=== PATIENT | female | born 1970 | race Caucasian/White ===

== ENCOUNTER 2022-07-30 02:03 | Outpatient (CLI) | payer BC, SELFPAY ==
--- NOTE | 2022-07-30 13:25 | DI.MAMMO_ITS ---
Exam(s) MG MAMMO DIAGNOSTIC UNI US BREAST RT LIMITED EXAM: MG MAMMO DIAGNOSTIC UNI CLINICAL HISTORY: RT BREAST LUMP OR MASS, N63.0 TECHNIQUE: Mammograms were interpreted according to the usual protocol including computer analysis w ith CAD system, tomosynthesis and C-view imaging. COMPARISON: FINDINGS: Right breast mammogram and right breast ultrasound are interpreted in conjunction. Patient reportedl y has palpable right breast abnormality. No prior examinations were available for comparison. In the upper outer quadrant of the right breast, there is an approximately 4 cm in diameter well-circ umscribed mass as well as a 2 cm in diameter well-circumscribed mass. Breast ultrasound showed these to both be simple cysts. Multiple additional cysts were noted in the right breast. No solid mass i dentified. Mammographically no other mass or clumped microcalcification seen. IMPRESSION: Palpable right breast mass corresponds to simple cyst confirmed on ultrasound. Multiple additional c ysts also seen. No suspicious mass identified. Routine screening mammography recommended. BI-RADS Category 2 - Benign Findings Breast Density - Category B - Scattered areas of fibroglandular density
== END 2022-07-30 02:23 ==
LOC: DI 02:03
PROVIDERS: Visit Provider Nurse Practitioner Family
DX: N60.01 Solitary cyst of right breast (principal)
CPT/HCPCS: 76642; 77061; 77065; G0279

== ENCOUNTER 2022-11-12 11:55 | Outpatient (REF) | payer BC, SELFPAY ==
--- NOTE | 2022-11-12 10:35 | PAPFT_PTH ---
PATIENT: Adry Rome LOC: [facility] U#:[id number] AGE/SX: 52/F ROOM: RE11/12/[address]: FELECIA BENTLEY : 1970 BED: DIS: 11/12/2022 SPEC #: [id number] RECD: 11/12/22 18:03 STATUS: REEMA REQ #: [id number] PEACE: 11/12/22 10:[address]: Felecia Bentley DEPT: [facility] Cytology RECD BY: Mehreen Shook Tissues: 1 - CX/ENDOCX FOR PAP SMEARS Procedures: PAP THIN PREP/UVM Screening HPV DNA PROBE Comments: [id number]
[2022-11-12 15:54] LABS: ALT 33 U/L (14-59); AST 27 U/L (15-37); Albumin 3.9 g/dL (3.4-5.0); Alkaline Phosphatase 80 U/L (46-116); Anion Gap 6.4 mmol/L (3-11); BUN 20 mg/dL (7-18); Bilirubin, Total 0.6 mg/dL (0.2-1.0); CO2 29.6 mmol/L (21.0-32.0); CREATININE 0.8 mg/dL (0.55-1.02); Calcium 9.5 mg/dL (8.5-10.1); Calculated LDL 360 mg/dL (<100); Chloride 103 mmol/L (98-107); Cholesterol 438 mg/dL (<200); Estimated GFR 89.15 (mL/min/1.73m2); Glucose 93 mg/dL (74-106); HDL Cholesterol 47 mg/dL (40-60); Potassium 4.6 mmol/L (3.5-5.1); Sodium 139 mmol/L (136-145); Total Protein 7.8 g/dL (6.4-8.2); Triglyceride 157 mg/dL (<150)
[2022-11-12 16:21] LABS: Hemoglobin A1C 5.6 % (<5.7)
== END 2022-11-12 11:56 | disposition home or self-care (01) ==
LOC: NCHCN 11:55
PROVIDERS: Visit Provider Nurse Practitioner Family
DX: R63.5 Abnormal weight gain (principal); E78.5 Hyperlipidemia, unspecified; Z12.4 Encounter for screening for malignant neoplasm of cervix; Z11.51 Encounter for screening for human papillomavirus (HPV); R87.610 Atypical squamous cells of undetermined significance on cytologic smear of cervix (ASC-US)
CPT/HCPCS: 80053; 80061; 88142; 83036; 87624

== ENCOUNTER 2022-12-11 08:58 | Outpatient (CLI) | payer BC, SELFPAY ==
--- NOTE | 2022-12-11 08:45 | DI.RAD_ITS ---
Exam(s) XR KNEE RT 3V AP,LAT,ROXI EXAM: XR KNEE RT 3V AP,LAT,ROXI CLINICAL HISTORY: right knee pain. TECHNIQUE: 2D digital imaging was performed of the right knee. Three views obtained. Merchant, AP an d lateral views were obtained. COMPARISON: No exams were available for comparison FINDINGS: BONES: No acute fracture is present. No bony destructive lesion is seen. JOINTS: The knee is normally aligned. No joint effusion is seen. SOFT TISSUE: Normal. IMPRESSION: Unremarkable radiographs of the right knee. DATA REPOSITORY: RADIATION DOSE DELIVERED:
== END 2022-12-11 08:59 | disposition home or self-care (01) ==
LOC: DIORS 08:58
PROVIDERS: PCP Nurse Practitioner Family; Referring Provider Nurse Practitioner Family; Visit Provider Physician Assistant
DX: M25.561 Pain in right knee (principal)
CPT/HCPCS: 73562

== ENCOUNTER 2022-12-14 13:08 | Outpatient (CLI) | payer BC, SELFPAY ==
--- NOTE | 2022-12-14 09:30 | DI.MRI_ITS ---
Exam(s) MR LOWER JOINT RT WO EXAM: MR LOWER JOINT RT WO CLINICAL HISTORY: ? MEDIAL MENISCUS TEAR M23.91 INTERNAL DERANGEMENT RT KNEE TECHNIQUE: Multiplanar multisequence MRI of the knee was performed. COMPARISON: CR XR KNEE RT 3V AP,LAT,ROXI from 12/11/2022 FINDINGS: EFFUSION: There is a small knee joint effusion. There is no Gamez cyst in the medial popliteal fossa . MARROW:No evidence of fracture but there is some bone contusion signal evident in tibial plateau at t he level of the medial tibial spine. There are no significant osseous lesions. PATELLOFEMORAL COMPARTMENT: The quadriceps tendon is intact. The patellar ligament is intact. There is no significant thinning of the retropatellar cartilage. No evidence of fissure nor signific ant chondral defect. No osteochondral defect at this level.There is no intraosseous signal to sugges t recent patellar dislocation. There are no patellar retinacular tears. CRUCIATE LIGAMENTS: There is signal abnormality and mildly irregular appearance of the ACL consistent with partial tearing. PCL is intact. MEDIAL COMPARTMENT/MEDIAL MENISCUS: There are no tears of the medial meniscus evident.. There are no chondral defects, osteochondral defects, subarticular marrow edema, nor osteophytes evid ent. MEDIAL COLLATERAL LIGAMENT: Sprain signal noted in the MCL. There is partial tearing of the deep com ponent adjacent to the upper aspect of the medial femoral condyle. Remainder of the MCL appears inta ct and there is no meniscocapsular separation. LATERAL COMPARTMENT/LATERAL MENISCUS: There is no evidence of lateral meniscal tear.There are no emy dral defects, osteochondral defects, subarticular marrow edema, nor osteophytes evident. ILIOTIBIAL BAND: Intact LATERAL COLLATERAL LIGAMENT COMPLEX: The fibular collateral ligament is intact. The biceps femoris t endon is intact.Popliteus muscle and tendon are intact. IMPRESSION: 1. The appearance of the anterior cruciate ligament is abnormal with some regularity and signal abnor mality. Suspect high-grade partial-thickness tearing of the ACL. PCL is intact. Focal bone contusi on in the tibial plateau at the level of the medial tibial spine. 2. There is signal abnormality in the upper MCL consistent with partial tearing at this level adjacen t to the outer aspect of the upper medial femoral condyle. Lateral collateral ligament complex is in tact. 3. No obvious meniscal tears. 4. Small amount of increased joint fluid. No Gamez cyst. DATA REPOSITORY:
== END 2022-12-14 13:28 ==
LOC: DI 13:09
PROVIDERS: PCP Nurse Practitioner Family; Visit Provider Student in an Organized Health Care Education/Training Program
DX: M23.8X1 Other internal derangements of right knee; S83.511A Sprain of anterior cruciate ligament of right knee, initial encounter; S83.411A Sprain of medial collateral ligament of right knee, initial encounter; M25.561 Pain in right knee; M25.461 Effusion, right knee
CPT/HCPCS: 73721

== ENCOUNTER 2023-05-03 18:15 | Outpatient (REF) | payer BC, SELFPAY ==
[2023-05-03 16:18] LABS: ALT 26 U/L (14-59); AST 22 U/L (15-37); Albumin 3.9 g/dL (3.4-5.0); Alkaline Phosphatase 65 U/L (46-116); BUN 19 mg/dL (7-18); Bilirubin, Total 0.6 mg/dL (0.2-1.0); Calcium 9.4 mg/dL (8.5-10.1); Calculated LDL 163 mg/dL (<100); Chloride 107 mmol/L (98-107); Cholesterol 223 mg/dL (<200); Estimated GFR 67.78 (mL/min/1.73m2); Glucose 99 mg/dL (74-106); HDL Cholesterol 44 mg/dL (40-60); Potassium 4.7 mmol/L (3.5-5.1); Sodium 143 mmol/L (136-145); Total Protein 7.7 g/dL (6.4-8.2); Triglyceride 84 mg/dL (<150)
== END 2023-05-03 18:16 | disposition home or self-care (01) ==
LOC: NCHCN 18:15
PROVIDERS: PCP Nurse Practitioner Family; Visit Provider Nurse Practitioner Family
DX: E78.5 Hyperlipidemia, unspecified (principal)
CPT/HCPCS: 80053; 80061

== ENCOUNTER → 2023-08-24 02:24 | Outpatient (CLI) | payer BC, SELFPAY ==
--- NOTE | 2023-08-24 08:18 | DI.MAMMO_ITS ---
Exam(s) MAMMO SCREENING EXAM: MAMMO SCREENING CLINICAL HISTORY: SCREENING FOR BREAST CANCER Z12.39. TECHNIQUE: Bilateral full field digital CC and MLO mammographic images were obtained with 3D tomosyn thesis and utilizing computer aided detection (CAD). COMPARISON: Prior 2021 right breast ultrasound and diagnostic mammogram were reviewed. Last bilateral screening mammogram was 2014. FINDINGS: Fibroglandular tissue is again noted be moderately dense, this somewhat decreasing the sensitivity ma mmogram for finding hidden underlying lesions. In the right breast previously described nodule which was shown to be a cyst on ultrasound has decrea sed in size. Another slightly smaller well-defined right breast nodule is again noted which most pro bably corresponds to the other smaller cyst on the prior ultrasound exam. In the opposite-left breast there is a small benign-appearing nodule located superiorly which is unch anged from 2015 and therefore benign. There are no new spiculated masses nor malignant appearing microcalcification groups. There is no significant architectural distortion nor skin thickening-retraction. IMPRESSION: Benign findings. No radiographic evidence of malignancy. BI-RADS Category 2 - Benign Findings Breast Density - Category C - Heterogeneously dense Breast density Category C or D implies that the patient has dense breast tissue. Dense breast tissue can make it harder to find cancer on a mammogram. Dense breast tissue is also associated with an incr eased risk of breast cancer. This information about the result of the mammogram report was provided to the patient to raise their awareness. Use this report when you speak with the patient about their risks for breast cancer, which includes their family history. At that time, you may recommend additional screening tests (Ultrasoun d or MRI) as these tests may add significant information. A negative radiographic report should not delay biopsy if a dominant or clinically suspicious mass is present. Up to ten percent of cancers are not identified on mammography. A negative report may reinforce clinical impression. Adenosis and dense breasts may obscure an underlying neoplasm. False positive reports average 6 to 10%. Patient will receive a letter notifying them of these results.
== END ==
PROVIDERS: PCP Nurse Practitioner Family; Visit Provider Nurse Practitioner Family
DX: Z12.31 Encounter for screening mammogram for malignant neoplasm of breast (principal)
CPT/HCPCS: 77063; 77067

== ENCOUNTER 2023-12-23 19:16 | Outpatient (REF) | payer BC, SELFPAY ==
[2023-12-23 15:52] LABS: Abs Immature Grans 0.01 10^3/uL (0.0-0.06); Absolute Basophil Count 0.05 10^3/uL (0.0-0.2); Absolute Eosinophil Count 0.14 10^3/uL (0.0-0.7); Absolute Monocyte Count 0.74 10^3/uL (0.1-0.8); Absolute Neutrophil Count 4.82 10^3/uL (1.2-6.7); Basophils % 0.6; Eosinophils % 1.7; HCT 41.4 % (36.0-46.0); HGB 13.6 g/dL (11.2-15.7); Immature Grans % 0.1; Lymphocytes % 30.3; MCH 29.8 pg (27.0-33.0); MCHC 32.9 % (32.0-36.0); MCV 91 fL (80-95); MPV 9.6 fL (8.0-11.0); Neutrophils % 58.3; Platelet Count 291 10^3/uL (130-400); RBC 4.57 10^6/uL (3.93-5.22); RDW 13.2 % (11.7-14.6); RDW-SD 44.4 fL; WBC 8.26 10^3/uL (4.4-10.8)
[2023-12-23 16:24] LABS: ALT 42 U/L (14-59); AST 30 U/L (15-37); Alkaline Phosphatase 64 U/L (46-116); Anion Gap 11.7 mmol/L (3-11); BUN 22 mg/dL (7-18); Bilirubin, Total 0.5 mg/dL (0.2-1.0); CO2 25.3 mmol/L (21.0-32.0); CREATININE 0.8 mg/dL (0.55-1.02); Calcium 9.6 mg/dL (8.5-10.1); Calculated LDL 184 mg/dL (<100); Chloride 105 mmol/L (98-107); Cholesterol 258 mg/dL (<200); Glucose 92 mg/dL (74-106); HDL Cholesterol 51 mg/dL (40-60); Potassium 4.7 mmol/L (3.5-5.1); Sodium 142 mmol/L (136-145); Total Protein 7.8 g/dL (6.4-8.2); Triglyceride 119 mg/dL (<150)
[2023-12-23 18:00] LABS: Hemoglobin A1C 5.9 % (<5.7)
== END 2023-12-23 19:17 | disposition home or self-care (01) ==
LOC: NCHCN 19:16
PROVIDERS: PCP Nurse Practitioner Family; Visit Provider Nurse Practitioner Family
DX: E78.5 Hyperlipidemia, unspecified (principal); R63.5 Abnormal weight gain; R79.89 Other specified abnormal findings of blood chemistry; R73.09 Other abnormal glucose; M25.561 Pain in right knee
CPT/HCPCS: 80053; 80061; 83036; 84443; 85025

== ENCOUNTER 2024-12-26 14:02 | Outpatient (REF) | payer BC, SELFPAY ==
[2024-12-26 20:20] LABS: ALT 33 U/L (14-59); AST 29 U/L (15-37); Albumin 3.9 g/dL (3.4-5.0); Alkaline Phosphatase 72 U/L (46-116); Anion Gap 5.8 mmol/L (3-11); BUN 16 mg/dL (7-18); Bilirubin, Total 0.4 mg/dL (0.2-1.0); CO2 29.2 mmol/L (21.0-32.0); CREATININE 0.9 mg/dL (0.55-1.02); Calcium 9.8 mg/dL (8.5-10.1); Calculated LDL 188 mg/dL (<100); Chloride 108 mmol/L (98-107); Cholesterol 261 mg/dL (<200); Estimated GFR 76.44 (mL/min/1.73m2); Glucose 91 mg/dL (74-106); HDL Cholesterol 49 mg/dL (>or=50); Hemoglobin A1C 5.8 % (<5.7); Potassium 4.5 mmol/L (3.5-5.1); Sodium 143 mmol/L (136-145); Total Protein 7.8 g/dL (6.4-8.2); Triglyceride 123 mg/dL (<150)
== END 2024-12-26 14:03 | disposition home or self-care (01) ==
LOC: NCHCN 14:02
PROVIDERS: PCP Nurse Practitioner Family; Visit Provider Nurse Practitioner Family
DX: E78.5 Hyperlipidemia, unspecified (principal); Z68.29 Body mass index [BMI] 29.0-29.9, adult; E66.9 Obesity, unspecified
CPT/HCPCS: 80053; 80061; 83036

== ENCOUNTER 2025-01-17 02:15 | Outpatient (CLI) | payer BC, SELFPAY ==
--- NOTE | 2025-01-17 | DI.MAMMO_ITS ---
Exam(s) MAMMO SCREENING EXAM: MAMMO SCREENING CLINICAL HISTORY: Mammo Screening Z12.31 TECHNIQUE: Bilateral full field digital CC and MLO mammographic images were obtained with 3D tomosyn thesis and utilizing computer aided detection (CAD). COMPARISON: Available for comparison. FINDINGS: Masses/Architectural Distortion: No suspicious masses or areas of architectural distortion are presen t. There is a stable nodule in the upper left breast on the MLO view. Microcalcifications: No suspicious pleomorphic-type are seen. Skin Thickening/Nipple Retraction: None. IMPRESSION: 1. No significant interval change with no specific features of malignancy noted. 2. Unless there is more urgent need, screening mammography is recommended, as per [employer] guidelines. BI-RADS Category 2 - Benign Findings Breast Density - Category C - Heterogeneously dense Breast density category C or D implies that the patient has dense breast tissue. Dense breast tissue is very common and is not abnormal but dense breast tissue can make it harder to find cancer on a ma mmogram. Also, dense breast tissue may increase their breast cancer risk. This information about the result of the mammogram report was provided to the patient to raise their awareness. Use this report when you speak with the patient about their risks for breast cancer, which includes their family hist ory. At that time, you may recommend for more screening tests (Ultrasound or MRI) as they might be us eful based on their risk. A negative radiographic report should not delay biopsy if a dominant or clinically suspicious mass is present. Up to ten percent of cancers are not identified on mammography. A negative report may reinforce clinical impression. Adenosis and dense breasts may obscure an underlying neoplasm. False positive reports average 6 to 10%. Patient will receive a letter notifying them of these results.
== END 2025-01-17 02:35 ==
LOC: DI 02:15
PROVIDERS: PCP Nurse Practitioner Family; Visit Provider Nurse Practitioner Family
DX: Z12.31 Encounter for screening mammogram for malignant neoplasm of breast (principal); R92.333 Mammographic heterogeneous density, bilateral breasts; D24.2 Benign neoplasm of left breast
CPT/HCPCS: 77063; 77067

== ENCOUNTER 2025-05-30 14:56 | Outpatient (CLI) | payer BC, SELFPAY ==
--- NOTE | 2025-05-30 14:34 | DI.RAD_ITS ---
Exam(s) XR CERVICAL SPINE COMP 4-5V EXAM: XR CERVICAL SPINE COMP 4-5V CLINICAL HISTORY: CERVICALGIA M54.2. TECHNIQUE: 2D digital imaging was performed. Five views were performed. COMPARISON: No exams were available for comparison FINDINGS: BONES: No fracture or destructive lesion. Vertebral bodies are unremarkable. A there are facet degenerative changes throughout. There is no significant neural foraminal narrowing. DISKS: There is moderate narrowing of the C5-6 and C6-7 disc spaces. There are endplate osteophytes. ALIGNMENT: There is degenerate straightening of normal cervical lordosis. The odontoid and atlantoaxial articulations are normal. SOFT TISSUE: Normal. The lung apices are clear. IMPRESSION: Degenerative disc changes at C5-6 and C6-7. Multilevel facet degenerative changes. No acute abnormality. DATA REPOSITORY: RADIATION DOSE DELIVERED:
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
== END 2025-05-30 15:16 ==
PROVIDERS: PCP Family Medicine; Visit Provider Family Medicine
DX: M25.511 Pain in right shoulder (principal); M54.2 Cervicalgia; M25.512 Pain in left shoulder
CPT/HCPCS: 72050; 73030